=== PATIENT | female | born 1985 | race Caucasian/White ===

== ENCOUNTER 2017-01-21 14:53 | Emergency (ER) | payer MEDICAID ==
[2017-01-21 15:33] VITALS: TEMP 98.1
[2017-01-21] MEDS ORDERED: ONDANSETRON 4 MG/2 ML VIAL IVP ONE (16:01)
[2017-01-21] MEDS ORDERED: NS 1,000 ML IV ONE ×2 (16:01)
[2017-01-21] MEDS ORDERED: HYDROmorphONE/DILAUDID 1 MG/ML SYR IVP ONE (16:01)
--- NOTE | 2017-01-21 16:13 | EDPHY ---
H & P Stated Complaint: Seen [facility] , + kidney stones-R flank pain. - Personal History LMP (Females 10-55): 15-21 Days Ago Current Tetanus/Diphtheria Vaccine: Yes Tetanus Vaccine Date: 2008 - Medical/Surgical History Hx Asthma: No Hx Chronic Respiratory Disease: No Hx Diabetes: No Hx Cardiac Disease: No Hx Renal Disease: No Hx Cirrhosis: No Hx Alcoholism: No Hx HIV/AIDS: No Hx Splenectomy or Spleen Trauma: No Other PMH: Kidney stones 01/20/17, C-sections, ectopic -R oophrectomy, appy, tonsileectomy, HTN. - Social History Smoking Status: Never smoked Time Seen by Provider: 01/21/17 15:56 HPI/ROS: Chief complaint: Right flank pain, recent diagnosis of kidney stone History of present illness: This is a 31-year-old female who presents to the emergency department for evaluation of right flank pain. Patient reports the onset of symptoms over the last few days. She describes a sharp pain radiating into the abdomen into the back. It is intermittent in nature. She denies precipitating factors. She denies alleviating factors. She has had associated nausea and vomiting. She states she was seen in [facility] yesterday and diagnosed with a kidney stone. She was discharged home but she remains feeling unwell. Her pain is not controlled. She states she was not discharged home on any medications. She denies other associated signs or symptoms including no fevers, no cold symptoms, no chest pain, cough or trouble breathing, no pain or swelling in the legs, no urinary symptoms. Review of systems: A 10 point review of systems was obtained and other than described above was negative. (Nirav Singleton) - Physical Exam Exam: General Appearance: Alert, nontoxic. Eyes: Pupils equal and round no pallor or injection. ENT, Mouth: Mucous membranes moist. Respiratory: There are no retractions, lungs are clear to auscultation. Cardiovascular: Regular rate and rhythm. Gastrointestinal: Abdomen is soft and non tender, no masses, bowel sounds normal. Genitourinary: No CVA tenderness. Neurological: Alert and oriented x4. Strength and sensation intact and symmetrical. Skin: Warm and dry, no rashes. Musculoskeletal: Neck is supple non tender. Extremities are symmetrical, full range of motion. Psychiatric: Patient is oriented X 3, there is no agitation. (Nirav Singleton) Constitutional: Initial Vital Signs Temperature (C) 36.7 C 01/21/17 15:28 Heart Rate 87 01/21/17 15:28 Respiratory Rate 18 01/21/17 15:28 Blood Pressure 153/120 H 01/21/17 15:28 O2 Sat (%) 96 01/21/17 15:28 O2 Delivery Mode Room Air Allergies/Adverse Reactions: cephalexin Allergy (Severe, Verified 01/21/17 15:34) Rash iodine Allergy (Severe, Verified 01/21/17 15:34) Anaphylaxis shellfish derived Allergy (Severe, Verified 01/21/17 15:34) Anaphylaxis Home Medications: Medication Instructions Recorded Metoprolol Tartrate 01/21/17 Ondansetron Odt [Zofran Odt 4 mg 4 mg PO Q4PRN PRN #7 tab 01/21/17 (*)] oxyCODONE/APAP 5/325 [Percocet 1 - 2 tab PO Q4PRN PRN #11 tab 01/21/17 5/325 (*)] Medical Decision Making ED Course/Re-evaluation: CT scan of the abdomen pelvis performed [facility] on 01/20/2017 shows a nonobstructive calculus in the upper pole of the right kidney measuring 4 mm, no hydronephrosis or obstructive nephroureterolithiasis, left kidney demonstrates marked parenchymal volume loss/atrophy (Nirav Singleton) The patient is signed out to me at change of shift. The patient is awaiting imaging studies. I reviewed the patient's laboratory studies. Her CBC, chemistry and LFTs were normal. KUB: No noted ureterolithiasis. Ultrasound: Please refer the dictated report by Dr. Mohan Henry. I discussed the case with Dr. Henry. No acute abnormality noted on ultrasound. 0: I rechecked the patient. She was lying comfortable in the bed. On repeat exam she had mild right lateral tenderness to palpation. This was superficial. No right upper quadrant tenderness to palpation. No other abdominal tenderness. Soft, nondistended. No rebound or guarding. I discussed the results with the patient. I answered all her questions. She felt comfortable with discharge. She will return with worsening symptoms. She was given warnings prior to leaving. (Samina Llamas) Differential Diagnosis: Included but not limited to nephrolithiasis, urinary tract infection, biliary tract disease, pancreatitis, gastritis, gastroenteritis, an associated complications (Nirav Singleton) My differential includes but is not limited to cholecystitis, pancreatitis, ureterolithiasis, renal colic, pyelonephritis, urinary tract infection, , ectopic , pulmonary embolus, pneumonia, pleurisy. (Samina Llamas) - Data Points Laboratory Results: Laboratory Results 01/21/17 16:30 01/21/17 16:30 01/21/17 01/21/17 01/21/17 16:30 16:30 16:30 WBC RBC Hgb Hct MCV MCH MCHC RDW Plt Count MPV Neut % (Auto) Lymph % (Auto) [place] % (Auto) Eos % (Auto) Baso % (Auto) Nucleat RBC Rel Count Absolute Neuts (auto) Absolute Lymphs (auto) Absolute Monos (auto) Absolute Eos (auto) Absolute Basos (auto) Absolute Nucleated RBC Immature Gran % Immature Gran # Sodium 136 mEq/L mEq/L (134-144) Potassium 4.1 mEq/L mEq/L (3.5-5.2) Chloride 106 mEq/L mEq/L (97-110) Carbon Dioxide 22 mEq/l mEq/l (22-31) Anion Gap 8 mEq/L mEq/L (8-16) BUN 12 mg/dL mg/dL (7-23) Creatinine 0.7 mg/dL mg/dL (0.6-1.0) Estimated GFR > 60 Glucose 91 mg/dL mg/dL (70-100) Calcium 9.3 mg/dL mg/dL (8.5-10.4) Total Bilirubin Cancelled 0.9 mg/dL mg/dL (0.1-1.4) Conjugated Bilirubin Cancelled 0.5 mg/dL mg/dL (0.0-0.5) Unconjugated Bilirubin Cancelled 0.4 mg/dL mg/dL (0.0-1.1) AST Cancelled 23 IU/L IU/L (14-46) ALT Cancelled 36 IU/L IU/L (9-52) Alkaline Phosphatase Cancelled 81 IU/L IU/L (38-126) Total Protein Cancelled 7.1 g/dL g/dL (6.3-8.2) Albumin Cancelled 3.9 g/dL g/dL (3.5-5.0) Lipase Cancelled 53.0 IU/L IU/L (23-300) Beta HCG, Qual NEGATIVE 01/21/17 16:30 WBC 8.20 10^3/uL 10^3/uL (3.80-9.50) RBC 5.69 10^6/uL H 10^6/uL (4.18-5.33) Hgb 12.9 g/dL g/dL (12.6-16.3) Hct 40.5 % % (38.0-47.0) MCV 71.2 fL L fL (81.5-99.8) MCH 22.7 pg L pg (27.9-34.1) MCHC 31.9 g/dL L g/dL (32.4-36.7) RDW 14.7 % % (11.5-15.2) Plt Count 237 10^3/uL 10^3/uL (150-400) MPV 10.7 fL fL (8.7-11.7) Neut % (Auto) 68.3 % % (39.3-74.2) Lymph % (Auto) 23.9 % % (15.0-45.0) Ripley % (Auto) 6.0 % % (4.5-13.0) Eos % (Auto) 1.0 % % (0.6-7.6) Baso % (Auto) 0.4 % % (0.3-1.7) Nucleat RBC Rel Count 0.0 % % (0.0-0.2) Absolute Neuts (auto) 5.61 10^3/uL 10^3/uL (1.70-6.50) Absolute Lymphs (auto) 1.96 10^3/uL 10^3/uL (1.00-3.00) Absolute Monos (auto) 0.49 10^3/uL 10^3/uL (0.30-0.80) Absolute Eos (auto) 0.08 10^3/uL 10^3/uL (0.03-0.40) Absolute Basos (auto) 0.03 10^3/uL 10^3/uL (0.02-0.10) Absolute Nucleated RBC 0.00 10^3/uL 10^3/uL (0-0.01) Immature Gran % 0.4 % % (0.0-1.1) Immature Gran # 0.03 10^3/uL 10^3/uL (0.00-0.10) Sodium Potassium Chloride Carbon Dioxide Anion Gap BUN Creatinine Estimated GFR Glucose Calcium Total Bilirubin Conjugated Bilirubin Unconjugated Bilirubin AST ALT Alkaline Phosphatase Total Protein Albumin Lipase Beta HCG, Qual Medications Given: Discontinued Medications Hydromorphone HCl (Dilaudid) 1 mg IVP EDNOW ONE Stop: 01/21/17 16:02 Last Admin: 01/21/17 16:46 Dose: 1 mg Sodium Chloride (Ns) 1,000 mls @ 0 mls/hr IV ONCE ONE PRN Reason: Wide Open Stop: 01/21/17 16:02 Last Admin: 01/21/17 16:48 Dose: 1,000 mls Sodium Chloride (Ns) 1,000 mls @ 0 mls/hr IV ONCE ONE PRN Reason: Wide Open Stop: 01/21/17 16:02 Last Admin: 01/21/17 16:48 Dose: 1,000 mls Ondansetron HCl (Zofran) 4 mg IVP EDNOW ONE Stop: 01/21/17 16:02 Last Admin: 01/21/17 16:48 Dose: 4 mg Departure - Departure Disposition: Home, Routine, Self-Care Clinical Impression: Abdominal pain Qualifiers: Abdominal location: right upper quadrant Qualified Code(s): R10.11 - Right upper quadrant pain Condition: Good Instructions: Acute Abdominal Pain (ED) Additional Instructions: Return with increasing pain, fever, vomiting, pain with urination, frequent urination, bloody urination or any other concerns. Referrals: [facility] [Other] - 2-3 days, if not improved Prescriptions: Ondansetron Odt [Zofran Odt 4 mg (*)] 4 mg PO Q4PRN PRN #7 tab PRN Reason: For Nausea & Vomiting oxyCODONE/APAP 5/325 [Percocet 5/325 (*)] 1 - 2 tab PO Q4PRN PRN #11 tab PRN Reason: For Moderate To Severe Pain
[2017-01-21 16:44] LABS: % IMMATURE GRANULYOCYTES 0.4 % (0.0-1.1); ABSOLUTE IMMATURE GRANULOCYTES 0.03 10^3/uL (0.00-0.10); ADD DIFF? NO; ADD MORPH? NO; ADD SCAN? NO; ATYPICAL LYMPHOCYTE FLAG 0 (0-99); FRAGMENT RBC FLAG 0 (0-99); HEMATOCRIT 40.5 % (38.0-47.0); HEMOGLOBIN 12.9 g/dL (12.6-16.3); LEFT SHIFT FLG 0 (0-99); LIPEMIA HEMOLYSIS FLAG 80 (0-99); MEAN CELL HEMOGLOBIN 22.7 pg (27.9-34.1); MEAN CELL HEMOGLOBIN CONCENTR. 31.9 g/dL (32.4-36.7); MEAN CELL VOLUME 71.2 fL (81.5-99.8); MEAN PLATELET VOLUME 10.7 fL (8.7-11.7); PLATELET CLUMPS FLAG 10 (0-99); PLATELET COUNT 237 10^3/uL (150-400); RED BLOOD CELL COUNT 5.69 10^6/uL (4.18-5.33); RED CELL DISTRIBUTION WIDTH 14.7 % (11.5-15.2)
[2017-01-21 17:02] LABS: CALCIUM 9.3 mg/dL (8.5-10.4); CARBON DIOXIDE 22 mEq/l (22-31); CHLORIDE 106 mEq/L (97-110); CREATININE 0.7 mg/dL (0.6-1.0); GLOMERULAR FILTRATION RATE > 60; GLUCOSE 91 mg/dL (70-100); SODIUM 136 mEq/L (134-144)
[2017-01-21 17:04] LABS: ANION GAP 8 mEq/L (8-16); POTASSIUM 4.1 mEq/L (3.5-5.2)
[2017-01-21] MEDS ORDERED: KETOROLAC 30 MG/1 ML SDV IVP ONE (17:25)
[2017-01-21 17:43] LABS: ALANINE AMINOTRANSFERASE 36 IU/L (9-52); ALBUMIN 3.9 g/dL (3.5-5.0); ALKALINE PHOSPHATASE 81 IU/L (38-126); ASPARTATE AMINOTRANSFERASE 23 IU/L (14-46); BILIRUBIN,TOTAL 0.9 mg/dL (0.1-1.4); BILIRUBIN-CONJUGATED 0.5 mg/dL (0.0-0.5); BILIRUBIN-UNCONJUGATED 0.4 mg/dL (0.0-1.1); TOTAL PROTEIN 7.1 g/dL (6.3-8.2)
[2017-01-21 19:28] VITALS: BP 135/86; PULSE 16; RESP 64; O2SAT 94
== END 2017-01-21 19:28 | disposition home or self-care (01) ==
DX: R10.11 Right upper quadrant pain (principal); I10 Essential (primary) hypertension
CPT/HCPCS: 96374; J1170; J2405

== ENCOUNTER 2017-06-18 05:44 | Emergency (ER) | payer MEDICAID ==
[2017-06-18 05:50] VITALS: TEMP 98.4
[2017-06-18] MEDS ORDERED: PENICILLIN VK 500 MG TAB PO ONE (05:56)
[2017-06-18] MEDS ORDERED: PENICILLIN VK 250 MG TAB PO ONE ×2 (05:59→06:00)
--- NOTE | 2017-06-18 05:59 | EDPHY ---
H & P Stated Complaint: LEFT UPPER AND LOWER JAW PAIN SINCE MIDNIGHT WITH SWELLING HPI/ROS: HPI CHIEF COMPLAINT: Left lower jaw line swelling and dental pain HISTORY OF PRESENT ILLNESS: This patient 31-year-old female, significant past medical history for gastric bypass surgery and cholecystectomy, poor dentition, presents emergency room with approximately 12 hours of left lower jaw line pain dental pain with some mild swelling. No fever. No trouble swallowing. No drooling and no trismus. She thinks she may have a dental infection. Past Medical History: No significant medical history Past Surgical History: Gastric bypass surgery, cholecystectomy Social History: Denies daily use drugs alcohol tobacco products. Family History: Noncontributory ROS REVIEW OF SYSTEMS: A comprehensive 10 point review of systems is otherwise negative aside from elements mentioned in the history of present illness. Exam Constitutional triage nursing summary reviewed, vital signs reviewed, awake/ alert. Eyes normal conjunctivae and sclera, EOMI, PERRLA. HENT oropharynx: Uvula midline, no trismus, no signs of Yo's, no gumline abscess, however over dental tooth #20, there is tenderness to palpation, and very very mild jaw line swelling, no significant lymphadenopathy, multiple dental fillings, moist mucus membranes, no epistaxis, neck supple/ no meningismus, no raccoon eyes. Respiratory clear to auscultation bilaterally, normal breath sounds, no respiratory distress, no wheezing. Cardiovascular rate normal, regular rhythm, no murmur, no edema, distal pulses normal. Gastrointestinal soft, non-tender, no rebound, no guarding, normal bowel sounds, no distension, no pulsatile mass. Genitourinary no CVA tenderness. Musculoskeletal no midline vertebral tenderness, full range of motion, no calf swelling, no tenderness of extremities, no meningismus, good pulses, neurovascularly intact. Skin pink, warm, & dry, no rash, skin atraumatic. Neurologic awake, alert and oriented x 3, AAOx3, moves all 4 extremities equally, motor intact, sensory intact, CN II-XII intact, normal cerebellar, normal vision, normal speech. Psychiatric normal mood/affect. Heme/Lymph/Immune no lymphadenopathy. Differential Diagnosis: Includes but is not limited to in a particular order acute dental infection, pulpitis, dental caries, dental fracture, gumline abscess, dental abscess Medical Decision Making: Plan for this patient I do not appreciate anything that needs to be drained along the gum line, no signs of Yo's, and she appears nontoxic, will place on [facility] and [place]. Close follow-up with a dentist. She understands if she has worsening pain, swelling to return to the emergency room. Source: Patient - Personal History LMP (Females 10-55): 22-28 Days Ago Current Tetanus/Diphtheria Vaccine: Yes Current Tetanus Diphtheria and Acellular Pertussis (TDAP): Yes Tetanus Vaccine Date: 2008 - Medical/Surgical History Hx Asthma: No Hx Chronic Respiratory Disease: No Hx Diabetes: No Hx Cardiac Disease: No Hx Renal Disease: No Hx Cirrhosis: No Hx Alcoholism: No Hx HIV/AIDS: No Hx Splenectomy or Spleen Trauma: No Other PMH: Kidney stones 01/20/17, C-sections, ectopic -R oophrectomy, appy, tonsileectomy, HTN. GASTRIC BYPASS. [place]. - Social History Smoking Status: Never smoked Constitutional: Initial Vital Signs Temperature (C) 36.9 C 06/18/17 05:47 Heart Rate 65 06/18/17 05:47 Respiratory Rate 18 06/18/17 05:47 Blood Pressure 176/113 H 06/18/17 05:47 O2 Sat (%) 95 06/18/17 05:47 O2 Delivery Mode Room Air Allergies/Adverse Reactions: cephalexin Allergy (Severe, Verified 06/18/17 05:50) Rash iodine Allergy (Severe, Verified 06/18/17 05:50) Anaphylaxis shellfish derived Allergy (Severe, Verified 06/18/17 05:50) Anaphylaxis Home Medications: Medication Instructions Recorded Hydrocodone/APAP 5/325 [[place] 1 - 2 tab PO Q4H PRN #10 tab 06/18/17 5/325] Penicillin V Potassium [Penicillin 500 mg PO BID #14 tab 06/18/17 VK] Departure - Departure Disposition: Home, Routine, Self-Care Clinical Impression: Dental infection Condition: Good Instructions: Dental Abscess (ED), Dental Caries (ED), Toothache (ED) Additional Instructions: 1. Return emergency room if there is any worsening symptoms questions or concerns. This includes worsening fever, swelling, pain. Please also follow up with dentistry. Referrals: [facility] [Other] - As per Instructions [facility] [Outside] - As per Instructions [facility] [Outside] - As per Instructions Dental [facility] [Outside] - As per Instructions Dental [facility] [Outside] - As per Instructions Dental [facility] [Outside] - As per Instructions Prescriptions: Hydrocodone/APAP 5/325 [[place] 5/325] 1 - 2 tab PO Q4H PRN #10 tab PRN Reason: Pain, Moderate Penicillin V Potassium [Penicillin VK] 500 mg PO BID #14 tab
[2017-06-18 06:32] VITALS: BP 166/110; PULSE 66; RESP 16; O2SAT 96
== END 2017-06-18 06:32 | disposition home or self-care (01) ==
DX: K04.7 Periapical abscess without sinus (principal); I10 Essential (primary) hypertension